=== PATIENT | male | born 2005 | race Caucasian/White ===

== ENCOUNTER 2024-12-27 16:03 | Emergency (ER) | payer OTHER, SELFPAY ==
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
[2024-12-27 16:27] VITALS: BP 140/81; PULSE 115; RESP 16; TEMP 36.8; O2SAT 98
--- NOTE | 2024-12-27 17:32 | ED_ITS ---
HPI - Skin/Abscess/Foreign Bdy General Chief complaint: Skin/Abscess/Foreign Body Stated complaint: Cyst Time Seen by Provider: 12/27/24 16:26 History of Present Illness HPI narrative: 19-year-old male presenting with pilonidal cyst. Patient states he has been having symptoms of it for about 1 week with some mild drainage including pus and blood. No trauma or injury. No fever, chills or other systemic features. No history of anything like this in the past and he has not been on any antibiotics. He was referred from urgent care for potential I&D. Related Data Allergies Allergy/AdvReac Type Severity Reaction Status Date / Time azithromycin Allergy Mild Hives / Verified 12/27/24 16:56 Red Face clavulanic acid Allergy Unknown DIARRHEA Verified 12/27/24 16:56 Review of Systems Review of Systems: As reviewed above in HPI Exam Narrative: GENERAL: [Well-appearing, well-nourished, and in no acute distress.] HEAD: [Normocephalic, atraumatic.] EYES: [PERRLA and EOMI.] ENT: Nares clear, no rhinorrhea or epistaxis. Mucous membranes moist. NECK: Supple. CHEST: [Clear to auscultation. No respiratory distress.] HEART: [Regular rate and rhythm]. No murmur heard. [Normal peripheral pulses.] ABDOMEN: [Soft, nondistended], [nontender], [No rigidity or guarding] EXTREMITIES: Normal range of motion. [No edema.] SKIN: Inflamed what appears to be a pilonidal cyst in the top of the intergluteal cleft with some minor drainage of pus and blood, tenderness to palpation, fluctuant mass palpable. NEURO: [No focal deficits]. Alert and oriented [x3.] PSYCH: [Normal mood and affect.] Course Vital Signs Vital signs: Vital Signs Temperature 36.8 C 12/27/24 16: Pulse Rate 115 H 12/27/24 16:27 Respiratory Rate 16 12/27/24 16:27 Blood Pressure 140/81 12/27/24 16:27 Pulse Oximetry 98 12/27/24 16:27 Temperature 36.8 C 12/27/24 16:27 Pulse Rate 115 H 12/27/24 16:27 Respiratory Rate 16 12/27/24 16:27 Blood Pressure 140/81 12/27/24 16:27 Pulse Oximetry 98 12/27/24 16:27 Procedures Abscess I/D vivian-rectal: Date of Incision: 12/27/24 Time of Incision: 18:40 Side (if applicable): right Sedation/analgesia: none Local Anesthetic: lidocaine 2% Amount of anesthesia used (mL): 7 Technique: incised with #11 blade Amount of fluid expressed (mL): 7 Irrigation: Yes Packing used?: none I&D Results: Pus and Blood MDM - Skin/Abscess/Foreign Bdy MDM Narrative Medical decision making narrative: 19-year-old male presenting with infected pilonidal cyst. Discussed treatment options with the patient including antibiotics and incision and drainage and he would prefer to be drained. Patient was given a dose of Bactrim, incision and drainage kit was set up and completed at bedside with expressing purulence and blood. Patient will follow-up with General surgery for definitive management including potential cyst removal if this is recurrent issue. Patient given return precautions and discharged home on antibiotics. Discharge Plan Discharge Clinical Impression: Pilonidal cyst Patient Disposition: Home Condition: Stable Instructions: Antibiotic Form, Pilonidal Cyst (ED), Pilonidal Cyst Excision (DC) Additional Instructions: Keep the area covered with gauze and bandaging material, change this several times a day, take the antibiotics as prescribed as well as Tylenol and ibuprofen for pain and fever control. Return with any new or worsening concerns, follow- up with General surgery for definitive care on outpatient basis. Return with any emergencies. Patient Language: [place] Prescriptions: New sulfamethoxazole-trimethoprim [Bactrim DS] 800-160 mg tablet 1 tablet PO Q12H Qty: 14 0RF Follow-up/Referrals: Manuel,JESSICA Justin-C [Primary Care Provider] - Giovanny Larose MD [Physician] - 1 Week (Pilonidal cyst status post I&D) Time of Disposition: 18:51
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
--- NOTE | 2024-12-27 19:14 | PC.NURSE ---
patient was not in the room when this RN went to discharge the patient.
== END 2024-12-27 19:17 | disposition home or self-care (01) ==
PROVIDERS: Emergency Provider Student in an Organized Health Care Education/Training Program; PCP Nurse Practitioner
DX: L05.91 Pilonidal cyst without abscess (principal)
CPT/HCPCS: 10080; 99283; J2003